=== PATIENT | female | born 1990 | race Caucasian/White ===

== ENCOUNTER 2023-10-13 12:45 | Outpatient (CLI) | payer OTHER, SELFPAY ==
[2023-10-13 13:17] LABS: Add Manual Diff / Slide Review NO; Basophils Absolute Auto 100 /uL (0-100); Basophils Percent Auto 0.7 % (0-2); Eosinophils Absolute Auto 200 /uL (0-450); Eosinophils Percent Auto 1.7 % (2-4); Hematocrit 28.3 % (36-46); Hemoglobin 9.5 g/dL (12.0-16.0); Lymphocytes Absolute Auto 1700 /uL (1100-4500); Lymphocytes Percent Auto 16.8 % (25-40); Mean Corpuscular HGB Conc 33.7 % (30-36); Mean Corpuscular Hemoglobin 26.7 PG (26-34); Mean Corpuscular Volume 79.2 fL (80-100); Monocytes Absolute Auto 1400 /uL (0-900); Monocytes Percent Auto 14.6 % (3-14); Neutrophils Absolute Auto 6500 /uL (1500-7000); Neutrophils Percent Auto 66.2 % (50-75); Platelet Count 164 X10^3/uL (150-400); Red Blood Cell Count 3.57 X10^6/uL (4.0-5.2); White Blood Cell Count 9.9 X10^3/uL (4.5-11.0)
[2023-10-13 13:34] LABS: Aspartate Aminotransferase 23 IU/L (14-36); BUN Creatinine Ratio 18.2 (6-22); Blood Urea Nitrogen 8 mg/dL (7-17); Estimated Glomerular Filt Rate > 60 mL/min (>60); Uric Acid 3.5 mg/dL (2.5-6.2)
== END 2023-10-13 14:03 | disposition home or self-care (01) ==
LOC: OB 10-16 13:51
PROVIDERS: Referring Provider Obstetrics & Gynecology; Visit Provider Obstetrics & Gynecology
DX: O13.3 Gestational [pregnancy-induced] hypertension without significant proteinuria, third trimester (principal); O36.8130 Decreased fetal movements, third trimester, not applicable or unspecified; Z3A.34 34 weeks gestation of pregnancy; Z34.93 Encounter for supervision of normal pregnancy, unspecified, third trimester; R80.9 Proteinuria, unspecified
CPT/HCPCS: 36415; 59025; 82570; 84156; 84450; 84550; 85025; G0378; G0379

== ENCOUNTER → 2023-10-13 12:49 | Outpatient (CLI) | payer OTHER, SELFPAY ==
[2023-10-13 13:42] LABS: Protein (Total) Urine Random 5 mg/dL (0-12); Protein Creatinine Ratio Urine 0.02 GRAM/24H
== END ==
PROVIDERS: Visit Provider Obstetrics & Gynecology
DX: Z34.93 Encounter for supervision of normal pregnancy, unspecified, third trimester (principal); R80.9 Proteinuria, unspecified
CPT/HCPCS: 82570; 84156

== ENCOUNTER 2023-10-26 03:18 | Outpatient (CLI) | payer OTHER, SELFPAY | END 2023-10-26 04:22 | disposition home or self-care (01) | LOC: OB 10-29 15:58 | PROVIDERS: Referring Provider Obstetrics & Gynecology; Visit Provider Obstetrics & Gynecology | DX: O21.9 Vomiting of pregnancy, unspecified (principal); O47.03 False labor before 37 completed weeks of gestation, third trimester; O13.3 Gestational [pregnancy-induced] hypertension without significant proteinuria, third trimester; Z3A.36 36 weeks gestation of pregnancy | CPT/HCPCS: 59025; G0378; G0379 ==

== ENCOUNTER → 2023-10-29 10:28 | Outpatient (CLI) | payer OTHER, SELFPAY ==
[2023-10-29 11:48] LABS: Free T4, Direct Thyroxine 0.87 ng/dL (0.78-2.19)
[2023-10-29 12:02] LABS: Thyroid Stimulating Hormone 3.57 uIU/mL (0.47-4.68)
[2023-10-30 07:57] LABS: Strep Grp B PCR NEG for Grp B Strep
== END ==
PROVIDERS: Referring Provider Obstetrics & Gynecology; Visit Provider Obstetrics & Gynecology
DX: Z34.82 Encounter for supervision of other normal pregnancy, second trimester (principal); E06.3 Autoimmune thyroiditis; Z3A.36 36 weeks gestation of pregnancy
CPT/HCPCS: 36415; 84439; 84443; 87653

== ENCOUNTER 2023-11-05 11:05 | Outpatient (CLI) | payer OTHER, SELFPAY ==
[2023-11-05 11:46] VITALS: BP 156/76; PULSE 88
[2023-11-05] MEDS: LABETALOL 100 MG TABLET PO (11:46)
[2023-11-05 12:09] LABS: Add Manual Diff / Slide Review NO; Basophils Absolute Auto 0 /uL (0-100); Basophils Percent Auto 0.4 % (0-2); Eosinophils Absolute Auto 200 /uL (0-450); Eosinophils Percent Auto 2.1 % (2-4); Hematocrit 31.2 % (36-46); Hemoglobin 10.2 g/dL (12.0-16.0); Lymphocytes Absolute Auto 1900 /uL (1100-4500); Lymphocytes Percent Auto 19.7 % (25-40); Mean Corpuscular HGB Conc 32.6 % (30-36); Mean Corpuscular Hemoglobin 24.5 PG (26-34); Mean Corpuscular Volume 75.1 fL (80-100); Monocytes Absolute Auto 1200 /uL (0-900); Monocytes Percent Auto 12.8 % (3-14); Neutrophils Absolute Auto 6400 /uL (1500-7000); Platelet Count 163 X10^3/uL (150-400); Red Blood Cell Count 4.15 X10^6/uL (4.0-5.2); Red Cell Distribution Width 16.7 % (11.6-14.8); White Blood Cell Count 9.8 X10^3/uL (4.5-11.0)
[2023-11-05 12:24] LABS: Alanine Aminotransferase 14 IU/L (<35); Albumin 3.4 g/dL (3.5-5.0); Albumin Globulin Ratio 0.9 (1.0-2.8); Alkaline Phosphatase 423 U/L (38-126); Aspartate Aminotransferase 26 IU/L (14-36); Bilirubin Total 0.5 mg/dL (0.2-1.3); Blood Urea Nitrogen 3 mg/dL (7-17); Calcium 8.8 mg/dL (8.4-10.2); Carbon Dioxide 19 mmol/L (22-32); Chloride 108 mmol/L (98-107); Estimated Glomerular Filt Rate > 60 mL/min (>60); Globulin 3.6 g/dL (1.7-4.1); Glucose 82 mg/dL (70-100); HEMOLYSIS < 15 (0-50); Potassium 3.8 mmol/L (3.4-5.1); Sodium 136 mmol/L (137-145); Uric Acid 4.5 mg/dL (2.5-6.2)
== END 2023-11-05 13:13 | disposition home or self-care (01) ==
LOC: LABOR 11:55 → OB 11-09 11:59
PROVIDERS: Referring Provider Obstetrics & Gynecology; Visit Provider Obstetrics & Gynecology
DX: O13.3 Gestational [pregnancy-induced] hypertension without significant proteinuria, third trimester (principal); Z3A.37 37 weeks gestation of pregnancy
CPT/HCPCS: 59025; 59050; 80053; 84450; 84550; 85025; G0378; G0379

== ENCOUNTER 2023-11-10 11:31 | Inpatient (IN) | payer OTHER, SELFPAY ==
[2023-11-10] MEDS: LACTATED RINGERS 1,000 ML 100 ML IV ×2 (12:15→19:14)
--- NOTE | 2023-11-10 12:25 | P.HPOB_ITS ---
OB HPI Date/Time Date of admission: 11/10/23 Date Patient Seen: 11/10/23 Time Patient Seen: 12:26 History of Present Condition Chief complaint: INDUCTION MOY Calculator 2 Estimated Delivery Date Method Current WG Current Estimate 11/22/23 Conception 38w 2d : 7 Para: 1 care: good care, initiated at week # (7), number of visits (9) and pounds weight gain (13) Dating criteria OB: LMP confirmed by 1st trimester US Ultrasounds: normal 1st trimester US and normal mid trimester US Obstetrical complications: gestational hypertension Medical complications OB: none Indications Indication for induction OB: gestational HTN/pre-eclampsia Preadmission Labs Last OB Lab Results: 2 Blood Type A Positive 11/10/23 12:15 Antibody Screen Negative 11/10/23 12:15 Hematocrit 29.1 % (36-46) L 11/10/23 12:15 Hemoglobin 9.4 g/dL (12.0-16.0) L 11/10/23 12:15 Group B Streptococcus (PCR) Neg for grp b strep 10/29/23 11:16 -: Chlamydia screen: negative, Gonorrhea screen: negative and Urine: negative -: PAP smear: Normal External Labs -: Urine: negative Prior (ies) Past Pregnancies Del. Date GA/Weeks Labor Lgth Wt Sex Route Outcome Anesthesia Place Delv Breastfeed Preg Comp Name 04/30/11 6 spontaneous 03/16/15 39.4 8 6 lb 8 oz Male vaginal live - full ter m epidural [place] Luis Alberto 3 months none Krishna 11/29/18 6-7 spontaneous 09/30/19 8 spontaneous 11/29/20 7 spontaneous 08/30/22 6-7 spontaneous Delivery Date: 03/16/15 Last Updated by: Litzy West, RN emergency induction for decels on NST Evaluation Evaluation Baseline heart rate: 125 Variability: Moderate (11-25) monitor accelerations: Present Monitor Decelerations: Absent Dilation (cm): 3 Effacement (%): 80 station: -1 Position of cervix: anterior Consistency: soft [facility] Medical History (Updated 11/05/23 @ 16:23 by Ciarra Torres MD) History of recurrent miscarriages Surgical History (Updated 09/28/23 @ 13:43 by Litzy West, GILES) History of dental surgery Family History (Updated 09/28/23 @ 13:45 by Litzy West RN) Grandmother Diabetes mellitus Dementia Mother Healthy adult Father Healthy adult Grandfather No problems noted. Grandmother Diabetes mellitus Hypertension Social History marital status: number of children: 1 household members: spouse and children lives independently: Yes caregiver/support person: Yes housing: house pets and animals: Yes (2 dogs, 1 cat; son manages litter box) education level: college (Associate's degree) occupational status: previously employed current occupational exposures/hazards: No special he needs: No travel history: recent (domestic only) seatbelt use: always water heater temp set < 120 deg: Yes working smoke detector in home: Yes fire extinguisher in home: Yes carbon monox detector in home: Yes firearms in home: No do you feel safe at home: Yes Smoking Status: Never smoker second hand exposure: Yes ( vapes, but only outdoors) alcohol intake: never substance use type: does not use during the past year weight has: remained stable well-balanced diet: about half the time daily servings fruits/ve-4 caffeine: Yes (1 can soda/day) Type(s) of exercise: walking frequency: daily Meds Home Medications and Allergies Home Medications Medication Instructions Recorded Confirmed Type levothyroxine 88 mcg tablet 88 mcg PO DAILY 09/28/23 11/10/23 History vitamin-ferrous sulfate tab PO 09/28/23 11/05/23 History 27 mg iron-folic acid 0.8 mg tablet labetalol 100 mg tablet 100 mg PO BID #30 tabs 10/26/23 11/10/23 Rx Allergies Allergy/AdvReac Type Severity Reaction Status Date / Time Fish Containing Products Allergy Severe Anaphylaxis Verified 11/05/23 10:29 Latex, Natural Rubber Allergy Intermediate Hives Verified 11/05/23 10:29 OB Exam Narrative Exam Narrative: Generally: Patient is sitting up in bed, no acute distress Fundal height: 37 cm Estimated weight 6-1/2 lb Extremities: No edema Objective Labs 11/10/23 12:15 Assessment and Plan Assessment and Plan Assessment and Plan narrative: Assessment: 32-year-old 7 para 1 at 38-,2/7 weeks gestation with gestational hypertension for induction of labor Plan: Pitocin per protocol 2 Epidural as necessary Expected management to spontaneous vaginal delivery Time Spent with Patient Total time spent with greater than 50% in coordination of care (as documented) at patient's floor/unit and/or counseling patient:: 15-24 minutes
[2023-11-10] MEDS: LABETALOL 100 MG TABLET PO ×2 (12:30→22:00)
[2023-11-10 12:34] LABS: Add Manual Diff / Slide Review NO; Basophils Absolute Auto 100 /uL (0-100); Basophils Percent Auto 0.8 % (0-2); Eosinophils Absolute Auto 100 /uL (0-450); Eosinophils Percent Auto 1.4 % (2-4); Hematocrit 29.1 % (36-46); Hemoglobin 9.4 g/dL (12.0-16.0); Lymphocytes Absolute Auto 1500 /uL (1100-4500); Lymphocytes Percent Auto 17.7 % (25-40); Mean Corpuscular HGB Conc 32.4 % (30-36); Mean Corpuscular Hemoglobin 24.5 PG (26-34); Mean Corpuscular Volume 75.7 fL (80-100); Monocytes Absolute Auto 1000 /uL (0-900); Monocytes Percent Auto 11.5 % (3-14); Neutrophils Absolute Auto 5900 /uL (1500-7000); Neutrophils Percent Auto 68.6 % (50-75); Platelet Count 144 X10^3/uL (150-400); Red Blood Cell Count 3.85 X10^6/uL (4.0-5.2); Red Cell Distribution Width 16.9 % (11.6-14.8); White Blood Cell Count 8.6 X10^3/uL (4.5-11.0)
[2023-11-10] MEDS: OXYTOCIN PREMIX 30 UNIT/500 ML PLAST..BAG IV (13:18)
[2023-11-10 14:06] VITALS: BP 142/80
--- NOTE | 2023-11-10 14:48 | PM.OBPNLAB ---
Date/Time Date Patient Seen: 11/10/23 Time Patient Seen: 14:48 Pain Control Pain control: tolerating well Pelvic Exam Dilation (cm): 4 Effacement (%): 75 station: -1 Amniotic membrane status: Intact Contractions Contractions on admission: none Pitocin rate (mU/min): 6 Contraction frequency (min): 3 Contraction duration (min): 1 Contraction pattern: Regular Contraction intensity: Mild Status status: Category l Heart Rate Baseline: 125 Monitor Accelerations: Present Monitor Decelerations: Absent Monitor Variability: Moderate Assessment and Plan Assessment: induction ongoing Comments: AROM with clear amniotic fluid Expected management to spontaneous vaginal delivery
[2023-11-10] MEDS: OXYTOCIN PREMIX 30 UNIT/500 ML PLAST..BAG 200 UNIT IV (19:30)
[2023-11-10] MEDS: LIDOCAINE 1% 20 ML INJ (19:45)
--- NOTE | 2023-11-10 20:28 | P.PCNOB_ITS ---
Events: Induced HTN Labor & Delivery Delivery date: 11/10/23 Intrapartal Events: Deceleration (variable) Cervical ripening method: none Induction method: per pitocin protocol Delivery augmentation: rupture of membranes Delivery monitor: external FHT and external uterine Route of delivery: Episiotomy description: None L&D Laceration Description: Perineal - 1st Degree and Vaginal - 1st Degree Quantitative Blood Loss: 100 Anesthesia Type: Local (for repair only) Complications: None Narrative: Patient complete and pushed with 2 contractions. At 7:29 p.m., a live male infant delivered spontaneously in the RUBEN presentation, over an intact perineum. The remainder of the body delivered and there was a body cord x1 which was reduced. The was placed on mom's abdomen. There was a short cord. The cord was double clamped and cut after 3 minutes. Cord bloods were obtained. Pitocin was given in the IV fluids. The placenta delivered intact with a three- vessel cord at 1932. . Fundus was massaged to firm. Perineum/vagina inspected and there was a first-degree vaginal/perineal laceration which was repaired with 2-0 chromic in the usual fashion after 6 cc of 1% lidocaine were injected. Hemostasis was achieved. Apgars 9 at 1 minute and 10 at 5 minutes. . Local analgesia only. Mom and stable to recovery. BW 6#7.6 oz [place] Baby 1: Infant gender: Male Presentation: vertex Position: Right Occiput Anterior Placenta delivery description: Spontaneous Cord Vessel Description: 3 Vessels, Clamped/Cut and Around Body x1 score (1 min): 9 score (5 min): 10 weight: 6 lb 7.6 oz Plan for aftercare: Routine care
[2023-11-11 07:34] LABS: Hematocrit 24.5 % (36-46); Hemoglobin 7.9 g/dL (12.0-16.0)
[2023-11-11 08:20] VITALS: BP 144/92; PULSE 106
[2023-11-11] MEDS: LABETALOL 100 MG TABLET PO (08:20)
[2023-11-11] MEDS: PRENATAL VIT,CALC/IRON/FOLIC 1 TABLET 1 TAB PO (08:21)
[2023-11-11] MEDS: DOCUSATE 100 MG CAPSULE PO (08:21)
[2023-11-11 11:44] VITALS: BP 127/82; PULSE 97; RESP 16; TEMP 36.8
== END 2023-11-11 15:32 | disposition home or self-care (01) | DRG 807 ==
PROVIDERS: Admitting Provider Obstetrics & Gynecology; Referring Provider Obstetrics & Gynecology; Visit Provider Obstetrics & Gynecology
DX: O13.4 Gestational [pregnancy-induced] hypertension without significant proteinuria, complicating childbirth (principal); Z37.0 Single live birth; O76 Abnormality in fetal heart rate and rhythm complicating labor and delivery; O70.0 First degree perineal laceration during delivery; Z3A.38 38 weeks gestation of pregnancy
CPT/HCPCS: 36415; 59050; 59410; 85014; 85018; 85025; 86850; 86900; 86901; G0379; J2590

== ENCOUNTER 2024-11-30 15:34 | Emergency (ER) | payer OTHER, SELFPAY ==
[2024-11-30 15:43] VITALS: BP 131/91; PULSE 109; RESP 18; TEMP 36.3; O2SAT 95; BMI 28.1
--- NOTE | 2024-11-30 15:54 | ED.GENADULT ---
HPI - General Adult General Chief complaint: Ear Stated complaint: ear px, hearing loss Time Seen by Provider: 11/30/24 15:50 Source: patient Mode of arrival: Ambulatory History of Present Illness HPI narrative: Patient is a 34-year-old female. Has a known current infection of RSV. Is having quite a bit of congestion and since this morning has pain and discomfort to the right ear. She was also reporting some pain to the left ear. Did try some Sudafed this morning which helped some of her congestion but is still having some ear pain. Related Data Home Medications Medication Instructions Recorded Confirmed levothyroxine 88 mcg tablet 88 mcg PO DAILY 09/28/23 11/10/23 vitamin-ferrous sulfate tab PO 09/28/23 11/05/23 27 mg iron-folic acid 0.8 mg tablet Allergies Allergy/AdvReac Type Severity Reaction Status Date / Time Fish Containing Products Allergy Severe Anaphylaxis Verified 11/30/24 15:48 Latex, Natural Rubber Allergy Intermediate Hives Verified 11/30/24 15:48 Review of Systems Review of Systems Narrative: See HPI Patient History Medical History History of recurrent miscarriages Surgical History (Updated 09/28/23 @ 13:43 by Litzy West RN) History of dental surgery Family History (Updated 09/28/23 @ 13:45 by Litzy West RN) Grandmother Diabetes mellitus Dementia Mother Healthy adult Father Healthy adult Grandfather No problems noted. Grandmother Diabetes mellitus Hypertension Social History marital status: number of children: 1 household members: spouse and children lives independently: Yes caregiver/support person: Yes housing: house pets and animals: Yes (2 dogs, 1 cat; son manages litter box) education level: college (Associate's degree) occupational status: previously employed current occupational exposures/hazards: No special he needs: No travel history: recent (domestic only) seatbelt use: always water heater temp set < 120 deg: Yes working smoke detector in home: Yes fire extinguisher in home: Yes carbon monox detector in home: Yes firearms in home: No do you feel safe at home: Yes Smoking Status: Never smoker second hand exposure: Yes ( vapes, but only outdoors) alcohol intake: never substance use type: does not use during the past year weight has: remained stable well-balanced diet: about half the time daily servings fruits/ve-4 caffeine: Yes (1 can soda/day) Type(s) of exercise: walking frequency: daily Smoking Status: Never smoker Exam Initial Vital Signs Initial Vital Signs: Vital Signs Temperature 97.4 F L 11/30/24 15:43 Pulse Rate 109 H 11/30/24 15:43 Respiratory Rate 18 11/30/24 15:43 Blood Pressure 131/91 H 11/30/24 15:43 Pulse Oximetry 95 11/30/24 15:43 Oxygen Delivery Method Room Air 11/30/24 15:43 HENMT Ears: TM normal on the left, EAC's normal and TM abnormal bulging on the right, dull on the right, wth effusion serous on the right and with fluid behind the TM on the right Resp Effort & Inspection: normal respiratory effort Skin General: no rashes or lesions noted Neuro General: patient alert and patient awake Course Vital Signs Vital signs: Vital Signs - 8 hr 11/30/24 15:43 Temperature 97.4 F L Pulse Rate 109 H Respiratory Rate 18 Blood Pressure 131/91 H Pulse Oximetry 95 Oxygen Delivery Method Room Air Medical Decision Making MDM Narrative Medical decision making narrative: Patient has a known current infection of RSV. Has serous otitis media on the right. No indication for antibiotics as this is a viral infection. Discussed this with the patient. We did discuss [id number] things that she can try to help with her symptoms. Discharge Plan Departure Patient Disposition: Home Clinical Impression: Acute serous otitis media of right ear Instructions: DI for Viral Upper Respiratory Infection -- Adult Activity Restrictions/Additional Instructions: You can take Tylenol and or ibuprofen for discomfort. I also recommend that you consider taking either Claritin or Zyrtec or the generic versions of these medications once a day has this can be helpful with some of the congestion. Afrin can be helpful as well. All these medications can be purchased [id number]. Contact your primary doctor for a follow-up. Return to the emergency department for new symptoms. Prescriptions: No Action vit-ferrous sulfat-FA 27 mg iron- 0.8 mg tablet PO levothyroxine 88 mcg tablet 88 mcg PO DAILY Referrals: Provider,[place] [facility] [Primary Care Provider] - Stand Alone Forms: Patient Portal/API/Survey
--- NOTE | 2024-11-30 16:01 | PC.NURSE ---
Addendum entered by Aparna Berry R.N. 11/30/24 16:02: No ear drainage noted. Original Note: Pt reports pain to outside of ear that has since resolved. Pt right ear slightly red and irritated. Nasal congestion noted. Pt reports she was dx w/ RSV
[2024-11-30 16:03] VITALS: PULSE 100; RESP 19
== END 2024-11-30 16:04 | disposition home or self-care (01) ==
PROVIDERS: Emergency Provider Emergency Medicine
DX: H65.01 Acute serous otitis media, right ear (principal)
CPT/HCPCS: 99281

== ENCOUNTER 2025-05-03 17:32 | Emergency (ER) | payer OTHER, SELFPAY ==
[2025-05-03 17:42] VITALS: BP 158/89; PULSE 100; RESP 20; TEMP 36.6; O2SAT 97; BMI 29.2
--- NOTE | 2025-05-03 22:30 | ED_ITS ---
HPI - Skin/Abscess/Foreign Bdy General Chief complaint: Skin/Abscess/Foreign Body Stated complaint: right side swelling by shoulder some discoloration Time Seen by Provider: 05/03/25 22:01 Source: patient, RN notes reviewed and old records reviewed Mode of arrival: Ambulatory Limitations: no limitations History of Present Illness HPI narrative: 34-year-old female with history of Pam's on Synthroid complaint of swelling of the collarbone/base of neck and feels squishy. Patient states she took a nap with her child on the couch had her right shoulder neck area in the crease of the couch. When she woke up she had some right shoulder pain but states she does have a history of rotator cuff issues bilaterally also noticed what seem like some swelling at the angle of her neck and collarbone. She states it is not there anymore. She did take a picture she states it looked a little bit more prominent with soft to palpation. States it was not really tender. She has not had any chest pain or shortness of breath. No fevers no cold cough or congestion. Has no other lumps bumps or swelling. No swelling of her upper extremities. No lightheadedness or passing out. No nausea or vomiting. No other GI or urinary symptoms. Has not had similar issues in the past. She feels like it has a resolved. Patient states she was on levothyroxine daily no other daily medications. She denies any major surgeries in the past. No regular tobacco, alcohol or recreational drugs. Related Data Home Medications ?Medication ?Instructions ?Recorded ?Confirmed levothyroxine 88 mcg tablet 88 mcg PO DAILY 09/28/23 1 01/11/23 vitamin-ferrous sulfate tab PO 09/28/2311/05 27 mg iron-folic acid 0.8 mg tablet Allergies Allergy/AdvReac Type Severity Reaction Status Date / Time Fish Containing Products Allergy Severe Anaphylaxis Verified 11/30/24 15:48 Latex, Natural Rubber Allergy Intermediate Hives Verified 11/30/24 15:48 Review of Systems Review of Systems ROS Unobtainable: All systems reviewed & are unremarkable except as noted in HPI and below Patient History Medical History History of recurrent miscarriages Surgical History History of dental surgery Family History Grandmother Diabetes mellitus Dementia Mother Healthy adult Father Healthy adult Grandfather No problems noted. Grandmother Diabetes mellitus Hypertension Social History marital status: number of children: 1 household members: spouse and children lives independently: Yes caregiver/support person: Yes housing: house pets and animals: Yes (2 dogs, 1 cat; son manages litter box) education level: college (Associate's degree) occupational status: previously employed current occupational exposures/hazards: No special he needs: No travel history: recent (domestic only) seatbelt use: always water heater temp set < 120 deg: Yes working smoke detector in home: Yes fire extinguisher in home: Yes carbon monox detector in home: Yes firearms in home: No do you feel safe at home: Yes Smoking Status: Never smoker second hand exposure: Yes ( vapes, but only outdoors) alcohol intake: never substance use type: does not use during the past year weight has: remained stable well-balanced diet: about half the time daily servings fruits/ve-4 caffeine: Yes (1 can soda/day) Type(s) of exercise: walking frequency: daily Smoking Status: Never smoker Exam Narrative Exam Narrative: GEN: well nourished, well appearing female, alert and oriented x 3, patient appears to be in mild distress. HEENT: Atraumatic, pupils are equal round reactive to light, extraocular movements are intact, nares are clear, TMs are clear with no fluid, there is no conjunctival pallor. Throat is clear without any exudates, erythema, tonsillar enlargement or uvular deviation, no cervical vertebral tenderness, neck is supple with full range of motion, no swelling no palpable nodes or masses. HEART: Regular rate and rhythm without murmur, clicks, rubs. No carotid bruits, pulses are equal in upper and lower extremities. No swelling bilateral upper extremities. LUNGS:Lungs clear to auscultation, no wheezes, rales, crackles, chest moves symmetrically ABD:bowel sounds normal, soft, non-tender, no guarding, rebound, rigidity, no masses noted, no hepatosplenomegaly MSCL: Non-tender, no muscle atrophy, muscles strength 5/5 upper and lower extre mities, full range of motion, normal gait NEURO:CN 2-12 intact, sensation normal. SKIN: No rash, no erythema or other skin changes Initial Vital Signs Initial Vital Signs: Vital Signs Temperature 98 F 05/03/25 17:42 Pulse Rate 100 H 05/03/25 17:42 Respiratory Rate 20 05/03/25 17:42 Blood Pressure 158/89 H 05/03/25 17:42 Pulse Oximetry 97 05/03/25 17:42 Oxygen Delivery Method Room Air 05/03/25 17:42 Course Vital Signs Vital signs: Vital Signs - 8 hr 05/03/25 22:46 Pulse Rate 81 Respiratory Rate 16 Blood Pressure 124/74 Pulse Oximetry 97 Oxygen Delivery Method Room Air MDM - Skin/Abscess/Foreign Bdy MDM Narrative Medical decision making narrative: 34-year-old female who had some swelling at the angle of the right neck and collarbone after having been asleep on the couch woke up has since resolved. I suspect she has a little bit of swelling from pressure to that area. She has no other symptoms other than some mild shoulder pain which she notes she has a history of rotator cuff issues and has had on and off. Her exam is otherwise reassuring she was asymptomatic. She did have a picture had some mild swelling at that site. Discussed with the patient she feels comfortable returning home think this is appropriate but did discuss return precautions. Discharge Plan Departure Patient Disposition: Home Clinical Impression: History of neck swelling Activity Restrictions/Additional Instructions: Follow up as needed. If you develop recurrent swelling, redness or warmth, any signs of infection, new chest pain, shortness of breath, new swelling of your extremity, numbness tingling or weakness, new redness or blue discoloration of your arm return to the emergency department. Prescriptions: No Action vit-ferrous sulfat-FA 27 mg iron- 0.8 mg tablet PO levothyroxine 88 mcg tablet 88 mcg PO DAILY Referrals: [facility] [Primary Care Provider, [facility]] Stand Alone Forms: Patient Portal/API
[2025-05-03 22:46] VITALS: BP 124/74; PULSE 81; RESP 16; O2SAT 97
== END 2025-05-03 22:49 | disposition home or self-care (01) ==
PROVIDERS: Emergency Provider Emergency Medicine
DX: R60.9 Edema, unspecified (principal)
CPT/HCPCS: 99281